=== PATIENT | female | born 1950 | race African-American/Black ===

== ENCOUNTER 2023-03-27 09:53 | Emergency (ER) | payer MEDICARE, OTHER ==
[2023-03-27] MEDS ORDERED: Proparacaine 0.5% Opth 15 ML BOT ONE (10:08)
[2023-03-27] MEDS ORDERED: Fluorescein Opthalmic Strip ONE (10:10)
== END 2023-03-27 10:40 | disposition home or self-care (01) ==
LOC: NAV ERS 09:53
DX: S05.91XA Unspecified injury of right eye and orbit, initial encounter (principal); E11.9 Type 2 diabetes mellitus without complications; I10 Essential (primary) hypertension; E78.00 Pure hypercholesterolemia, unspecified; Z79.899 Other long term (current) drug therapy; Z79.82 Long term (current) use of aspirin; Z79.84 Long term (current) use of oral hypoglycemic drugs; W25.XXXA Contact with sharp glass, initial encounter
CPT/HCPCS: 99283